=== PATIENT | male | born 1975 | race African-American/Black ===

== ENCOUNTER 2019-08-05 02:07 | Emergency (ER) | payer BC ==
[~2019-08-05] VITALS: Ht 182.9 cm; Wt 77.2 kg
[2019-08-05 02:14] VITALS: BP 131/80
[2019-08-05 02:52] LABS: BASO % 1 % (0-3); EOS # 0.1 x10^3/uL (0.0-0.7); EOS % 3 % (0-3); HEMATOCRIT 39.4 % (39.0-53.0); HEMOGLOBIN 13.2 g/dL (13.0-17.5); LYMPH # 1.7 x10^3/uL (1.0-4.8); LYMPH % 55 % (24-48); MEAN CORPUSCULAR HEMOGLOBIN 30 pg (25-35); MEAN CORPUSCULAR HGB CONC 34 g/dL (31-37); MEAN CORPUSCULAR VOLUME 88 fL (79-100); MONO # 0.3 x10^3/uL (0.0-1.1); MONO % 9 % (0-9); NEUT % 32 % (31-73); PLATELET COUNT 233 x10^3/uL (140-400); RED BLOOD COUNT 4.48 x10^6/uL (4.30-5.70); WHITE BLOOD COUNT 3.1 x10^3/uL (4.0-11.0)
[2019-08-05] MEDS ORDERED: HYDROcodone/APAP 7.5/325MG 1 TAB TABLET PO ONE (03:00)
[2019-08-05] MEDS ORDERED: KETOROLAC 60 MG/2 ML VIAL. IM ONE (03:00)
[2019-08-05 03:05] LABS: CREATINE KINASE 143 U/L (39-308)
[2019-08-05 03:12] LABS: C-REACTIVE PROTEIN < 0.5 mg/L (0-3.3)
[2019-08-05] MEDS ORDERED: DICL50TA4 PO (03:43)
[2019-08-05] MEDS ORDERED: METH4TAB2 PO (03:43)
--- NOTE | 2019-08-05 03:44 | PHYS DOC ---
Past Medical History Past Medical History: No Pertinent History Past Surgical History: No Surgical History Alcohol Use: None Adult General Chief Complaint Chief Complaint: UPPER EXTREMITY PAIN HPI HPI Patient is a 44 year old male who presents with complaint of arm pain. Patient states that pain started approximately an hour and a half ago, stating that it started in his left arm and then later moved to his right arm. Currently he denies any pain in his left arm. He states the right arm is an 8 out of 10. He denies any chest pain or shortness of breath. He denies any numbness or tingling. Patient states the pain is worsened with movement.[] Review of Systems Review of Systems Constitutional: Denies fever or chills [] Respiratory: Denies cough or shortness of breath [] Cardiovascular: No additional information not addressed in HPI [] Musculoskeletal: Positive arm pain [] Integument: Denies rash or skin lesions [] Neurologic: Denies headache, focal weakness or sensory changes [] Current Medications Current Medications Current Medications Medications (Trade) Dose Ordered Sig/Moisés Start Time Stop Time Status Last Admin Dose Admin Acetaminophen/ Hydrocodone Bitart (Lortab 7.5/325) 1 tab 1X ONCE 08/05/19 03:00 08/05/19 03:01 DC 08/05/19 02:51 1 TAB Ketorolac Tromethamine (Toradol Im) 60 mg 1X ONCE 08/05/19 03:00 08/05/19 03:01 DC 08/05/19 02:52 60 MG Allergies Allergies Allergies Coded Allergies Type Severity Reaction Last Updated Verified No Known Drug Allergies 08/05/19 No Physical Exam Physical Exam Constitutional: Well developed, well nourished, no acute distress, non-toxic appearance. [] Neck: Normal range of motion, no tenderness, supple, no stridor. [] Cardiovascular: Regular rate and rhythm[] Lungs & Thorax: Bilateral breath sounds clear to auscultation [] Skin: Warm, dry, no erythema, no rash. [] Extremities: No tenderness, no cyanosis, no clubbing, ROM intact, no edema. [] Neurologic: Alert and oriented X 3, no focal deficits noted. [] Current Patient Data Vital Signs Vital Signs Date Time Temp Pulse Resp B/P (MAP) Pulse Ox O2 Delivery O2 Flow Rate FiO2 08/05/19 02:51 16 99 Room Air 08/05/19 02:14 97.8 61 131/80 (97) 97.8 Lab Values Laboratory Tests Test 08/05/19 02:44 White Blood Count 3.1 x10^3/uL (4.0-11.0) L Red Blood Count 4.48 x10^6/uL (4.30-5.70) Hemoglobin 13.2 g/dL (13.0-17.5) Hematocrit 39.4 % (39.0-53.0) Mean Corpuscular Volume 88 fL (79-100) Mean Corpuscular Hemoglobin 30 pg (25-35) Mean Corpuscular Hemoglobin Concent 34 g/dL (31-37) Red Cell Distribution Width 14.0 % (11.5-14.5) Platelet Count 233 x10^3/uL (140-400) Neutrophils (%) (Auto) 32 % (31-73) Lymphocytes (%) (Auto) 55 % (24-48) H Monocytes (%) (Auto) 9 % (0-9) Eosinophils (%) (Auto) 3 % (0-3) Basophils (%) (Auto) 1 % (0-3) Neutrophils # (Auto) 1.0 x10^3/uL (1.8-7.7) L Lymphocytes # (Auto) 1.7 x10^3/uL (1.0-4.8) Monocytes # (Auto) 0.3 x10^3/uL (0.0-1.1) Eosinophils # (Auto) 0.1 x10^3/uL (0.0-0.7) Basophils # (Auto) 0.0 x10^3/uL (0.0-0.2) Creatine Kinase 143 U/L (39-308) C-Reactive Protein, Quantitative < 0.5 mg/L (0-3.3) Laboratory Tests 08/05/19 02:44 EKG EKG [] Radiology/Procedures Radiology/Procedures [] Course & Med Decision Making Course & Med Decision Making Pertinent Labs and Imaging studies reviewed. (See chart for details) [] Dragon Disclaimer Dragon Disclaimer This electronic medical record was generated, in whole or in part, using a voice recognition dictation system. Departure Departure Impression: Primary Impression: Arm pain Disposition: 01 HOME, SELF-CARE Condition: STABLE Referrals: [facility] [employer] (PCP) Patient Instructions: Musculoskeletal Pain Scripts Methylprednisolone (MEDROL) 4 Mg Tab.ds.pk 1 PKG PO UD, #1 PKG Prov: NATHAN GIRARD Jr. DO 08/05/19 Diclofenac Sodium (DICLOFENAC SODIUM) 50 Mg Tablet.dr 1 TAB PO BID PRN for PAIN, #20 TAB Prov: NATHAN GIRARD Jr. DO 08/05/19 Problem Qualifiers Primary Impression: Arm pain Laterality: unspecified laterality Qualified Codes: M79.603 - Pain in arm, unspecified NATHAN GIRARD Jr. DO Aug 05, 2019 03:43
== END 2019-08-05 03:50 | disposition home or self-care (01) ==
LOC: ER 02:07
DX: M79.601 Pain in right arm (principal)
CPT/HCPCS: 36415; 82550; 85025; 86140; 96372; 99284; J1885